=== PATIENT | male | born 1985 | race African-American/Black ===

== ENCOUNTER → 2022-07-21 | Outpatient (CLI) | payer MEDICAID ==
[~2022-07-21] VITALS: Ht 185.4 cm; Wt 74.8 kg
[~2022-07-21] MED LIST: MINO100C4 PO; OXCA300T26 PO; WARF5TAB71 PO
== END | disposition home or self-care (01) ==
LOC: LAB 10:00 → EDSTATUS 07-23 13:57
PROVIDERS: ATTEND Internal Medicine Cardiovascular Disease
DX: Z20.822 Contact with and (suspected) exposure to COVID-19 (principal)

== ENCOUNTER 2022-08-04 10:30 | Outpatient (CLI) | payer MEDICAID ==
[~2022-08-04] VITALS: Ht 185.4 cm; Wt 74.8 kg
[2022-08-04] MEDS ORDERED: OXCA300T26 PO (16:59)
[2022-08-04] MEDS ORDERED: WARF5TAB71 PO (16:59)
[2022-08-04] MEDS ORDERED: MINO100C4 PO (17:04)
== END 2022-08-04 10:39 | disposition home or self-care (01) ==
LOC: LAB 10:30 → EDSTATUS 08-06 17:22
PROVIDERS: ATTEND Internal Medicine Cardiovascular Disease
DX: Z20.822 Contact with and (suspected) exposure to COVID-19 (principal)

== ENCOUNTER 2023-09-07 06:40 | Day surgery (SDC) | payer MEDICAID ==
[~2023-09-07] VITALS: Ht 185.4 cm; Wt 73.9 kg
[~2023-09-07 06:40] MED LIST changes: -MINO100C4 PO; -OXCA300T26 PO; +OXCA300T4 PO; +WARF-66 PO; -WARF5TAB71 PO
[2023-09-07] MEDS ORDERED: IODIXANOL 320MG/ML 100ML BTL IV ONE (08:58)
[2023-09-07] MEDS ORDERED: LIDOCAINE 2%HCL (LOCAL ANESTH.) INJ 20ML MDV ONE (08:58)
[2023-09-07] MEDS ORDERED: ANGIOMAX 250 MG VIAL IV ONE (09:00)
[2023-09-07] MEDS ORDERED: MIDAZOLAM HCL 2MG/2ML 2ml VIAL (1mg/ml) ONE (09:00)
[2023-09-07] MEDS ORDERED: fentaNYL CITRATE 100 MCG/2 ML VL ONE (09:00)
[2023-09-07] MEDS ORDERED: SODIUM CHL 0.9% 0 ML ONE (09:01)
== END 2023-09-07 12:05 | disposition home or self-care (01) ==
LOC: CATH 06:40
PROVIDERS: ATTEND Internal Medicine Cardiovascular Disease
DX: R94.39 Abnormal result of other cardiovascular function study (principal); I50.9 Heart failure, unspecified; Z79.01 Long term (current) use of anticoagulants; Z95.2 Presence of prosthetic heart valve; Z79.899 Other long term (current) drug therapy
CPT/HCPCS: 76942; 93454; C1894; J1644; J2250; J3010; Q9967; 99152